=== PATIENT | male | born 1965 | race Caucasian/White ===

== ENCOUNTER 2018-02-26 19:20 | Emergency (ER) | payer OTHER ==
[~2018-02-26] VITALS: Ht 193 cm; Wt 83.9 kg
--- NOTE | ~2018-02-26 | EKG ---
[address] [address] ELECTROCARDIOGRAM REPORT Name: CARDOZAANDREW SNELL Room #: [facility]P [facility]ina[facility] [id number] Admission: 02/26/18 Attend Phys: Discharge: 02/26/18 Date of : 65 Report #: [id number] THIS REPORT FOR: //name// Formerly [facility] ED Test Date: 2018-02-26 Test Time: 20:32:35 Pat Name: ANDREW CARDOZA Department: Room: Gender: M Section Chief: DIANNA : 1965 Requested By: Jose Eduardo Putnam Order Number: [id number] MD: Arjun Alvarez Measurements Intervals [place] Rate: 75 P: 66 PA: 191 QRS: 65 QRSD: 97 T: 43 QT: 365 QTc: 408 Interpretive Statements Sinus rhythm ST elev, probable normal early repol pattern No previous ECG available for comparison Electronically Signed On 02-28-2018 17:33:53 CDT by Arjun Alvarez [email or web address] <ELECTRONICALLY SIGNED> By: Arjun Alvarez MD 02/28/18 1733 31 31 Arjun Alvarez MD /MG
[2018-02-26 20:51] LABS: HEMATOCRIT 41.5 % (42.0-52.0); HEMOGLOBIN 13.9 gm/dL (14.0-18.0); MCH 27.3 pg (26.0-34.0); MCHC 33.6 g/dL (28.0-37.0); MCV 81.3 fL (80.0-100.0); PLATELET COUNT 151 thou/uL (150-400); RBC 5.11 mil/uL (4.50-6.00); RDW 15.6 % (10.5-14.5); WBC 6.3 thou/uL (4.0-11.0)
[2018-02-26 20:53] LABS: URINE BILIRUBIN NEGATIVE (Negative); URINE BLOOD NEGATIVE (Negative); URINE CLARITY CLEAR; URINE COLOR YELLOW; URINE GLUCOSE-RANDOM* NEGATIVE (Negative); URINE KETONES NEGATIVE (Negative); URINE LEUKOCYTES-REFLEX NEGATIVE (Negative); URINE NITRITE-REFLEX NEGATIVE (Negative); URINE PROTEIN (DIPSTICK) NEGATIVE (Negative); URINE SPECIFIC GRAVITY >= 1.030 (1.005-1.035); URINE UROBILINOGEN 0.2 E.U./dl (0.2-1.0)
[2018-02-26 20:58] LABS: ANION GAP 4 mmol/L (7-16); BUN 17 mg/dL (7-18); CHLORIDE 106 mmol/L (98-107); CO2 30 mmol/L (21-32); CREATININE 1.1 mg/dL (0.7-1.3); GLUCOSE 84 mg/dL (74-106); POTASSIUM 3.5 mmol/L (3.5-5.1); SODIUM 140 mmol/L (136-145)
[2018-02-26 21:06] LABS: ALBUMIN 3.7 g/dL (3.4-5.0); LIPASE 106 U/L (73-393); SGOT 15 U/L (15-37); SGPT 22 U/L (30-65); TOTAL BILIRUBIN 0.4 mg/dL (<0.1-1.0); TOTAL PROTEIN 7.4 g/dL (6.4-8.2); TROPONIN-I <0.06 ng/mL (<0.06)
[2018-02-26 21:34] LABS: ABSOLUTE NEUTROPHILS 3.8 thou/uL (1.4-8.2); ATYPICAL LYMPHS 2 %
[2018-02-26] MEDS ORDERED: DOXYCYCLINE 10100 MG PO (22:13)
[2018-02-26 22:25] VITALS: BP 120/80
== END 2018-02-26 22:32 | disposition home or self-care (01) ==
LOC: ER 19:20
PROVIDERS: Physician Assistant
DX: J18.9 Pneumonia, unspecified organism (principal); R10.9 Unspecified abdominal pain; Z88.8 Allergy status to other drugs, medicaments and biological substances; Z87.891 Personal history of nicotine dependence